=== PATIENT | female | born 1940 | race Caucasian/White ===

== ENCOUNTER 2016-11-14 23:50 | Inpatient (IN) | payer OTHER ==
--- NOTE | ~2016-11-14 | DS ---
Discharge Summary [facility] [address] [place]. [address] NAME: CARIDAD GORDON : 40 STATUS : DIS IN PAT#: [id number] AGE: 76 ADM/REG DATE : 11/15/16 MR#: [id number] REPORT SERV DATE: 11/28/16 DICTATED BY: OWEN CHI DATE: 11/27/16 REPORT STATUS : Draft TRANSCRIBED BY: ESME DATE: 11/27/16 Data Collection from hospitalization DISCHARGE DIAGNOSES: 1. Left lower lobe pneumonia. 2. End-stage chronic obstructive pulmonary disease. 3. Hypertension. 4. Former smoker. 5. Hypothyroidism. 6. Hyperlipidemia. 7. Depression and anxiety. 8. History of thoracic aortic aneurysm. CONSULTATION: Dr. Dipika Mcgowan. PROCEDURES PERFORMED: None. MEDICATIONS: Tylenol 325 mg every four hours as needed, DuoNeb one nebulized inhaler four times a day, Halfprin 81 mg at bedtime, Lipitor 10 mg at bedtime, Lasix 40 mg daily, Levaquin 750 mg daily, Synthroid 125 mcg daily, Mag-Ox 400 mg daily, Dulera two puffs via inhaler twice a day, Paxil 20 mg at bedtime, Klor-Con 20 mEq daily, Deltasone 40 mg daily. Daliresp 500 mcg daily, Spiriva one capsule via inhaler daily. CONDITION AT DISCHARGE: Stable. DISPOSITION: The patient was discharged to home on a regular diet with activities as instructed. To follow up with me 10 days following discharge. HOSPITAL COURSE: This is a 76-year-old female who is a former smoker. She has a history of COPD, chronic hypoxia, and recurrent CO2 narcosis. She presented with acute hypercapnic and hypoxemic respiratory failure requiring BiPAP and increased supplemental oxygen. When she arrived in the emergency room she was unresponsive with an elevated CO2. She has a long history of COPD with CO2 retention. She was placed on BiPAP in the emergency room and given aerosol for her O2 saturation increase. She was admitted to the hospital at this time for further evaluation and treatment. Upon admission, she was seen by Dr. Dipika Mcgowan regarding hypercapnic/hypoxemic respiratory failure requiring BiPAP. She had received bronchodilators and systemic steroids and cefepime as well as BiPAP with a good response. She currently felt significantly better, although she does have a persistent cough. She felt like her current pulmonary status was close to baseline. Her assessment included chronic obstructive pulmonary disease and chronic hypoxia with acute on chronic respiratory failure with hypercapnia likely secondary to infection. She did have CO2 narcosis and has had that in the past. She had a good response to her current treatment with systemic steroids and bronchodilators as well as cefepime, BiPAP, and supplemental oxygen. She recommended adding any nebulized steroid. Budesonide was going to begun via nebulization. It was recommended that she improves pulmonary toilet. She has a chronic infiltrative process in the right middle and right lower lobes. Procalcitonin would be checked. She had a good response to the cefepime. Discharge Summary [id number] [place]. [address] NAME: CARIDAD GORDON : 40 STATUS : DIS IN [facility]#: [id number] AGE: 76 ADM/REG DATE : 11/15/16 MR#: [id number] REPORT SERV DATE: 11/28/16 DICTATED BY: OWEN CHI DATE: 11/27/16 REPORT STATUS : Draft TRANSCRIBED BY: ESME DATE: 11/27/16 This was continued. In light of the significant CO2 narcosis, it was recommended that we continue BiPAP with supplemental oxygen. We would set the BiPAP at 20/5 as she did have a good response. This should be used with sleep. She was currently refusing outpatient pulmonary follow up after discharge. She said she would contact the office if she desired an appointment. On the 11/16/2016, she said she was feeling better. She did use her home CPAP the previous evening. Prednisone was adjusted. Solu-Medrol was stopped. She continued to refuse outpatient pulmonary followup after discharge. She was going to be changed to oral steroids and antibiotics. She was feeling better, but said not quite at her baseline. The next day, she was conversant. Chest x-ray did show left lower lobe atelectasis/infiltrate. Overall, she continued to improve. Discharge planning was performed. On 11/18/2016, she was wanting to go home. She was felt to have left lower lobe pneumonia and end-stage COPD. She is on BiPAP and O2 at home. Discharge instructions were given. Due to her improved and stable condition, she was discharged to home with the above- stated instructions. Information collected by: Rosemary Bravo I submit the above information as my discharge summary. ANGELIQUE/ESME Owen Chi M.D. / [id number] CC: Owen Chi M.D.
--- NOTE | ~2016-11-14 | CN ---
Consultation Report [id number] [facility] [place]. [address] NAME: CARIDAD WARNER : 40 STATUS : ADM IN [facility]#: [id number] AGE: 76 ADM/REG DATE : 11/15/16 MR#: [id number] REPORT SERV DATE: 11/15/16 DICTATED BY: DIPIKA VALENCIA DATE: 11/15/16 REPORT STATUS : Draft TRANSCRIBED BY: MODL DATE: 11/15/16 PULMONARY CONSULTATION DATE OF CONSULTATION: 11/15/2016 REASON FOR CONSULTATION: Hypercapnic/hypoxemic respiratory failure, requiring BiPAP. HISTORY OF PRESENT ILLNESS: Ms Warner is a 76-year-old white female, former smoker, with COPD, chronic hypoxia, and recurrent CO2 narcosis, who was admitted with acute hypercapnic and hypoxemic respiratory failure, requiring BiPAP and increased supplemental oxygen, so Pulmonary was consulted for assistance. The patient states that prior to admission, she had one-week history of cough productive of yellow sputum and worsening shortness of breath, despite compliance with her outpatient pulmonary medications and outpatient positive pressure device. She states that her symptoms continued to progress until she lost consciousness. She is unable to give further details. Per the admission note, the patient arrived at the emergency room unresponsive. The patient has received bronchodilators, systemic steroids, and cefepime as well as BiPAP with a good response. Currently, she states she feels significantly better though she does have a persistent cough. She does feel her current pulmonary status is close to her baseline. She was recently hospitalized for a femoral head fracture and was discharged from this hospital approximately six weeks ago. PAST MEDICAL HISTORY: 1. COPD/chronic respiratory failure, requiring positive airway pressure device. 2. Chronic hypoxia-on supplemental oxygen at a flow rate of 2 to 4 L/minutes 24 hours per day. 3. Former smoker. 4. Hypothyroidism. 5. Hypertension. 6. Hyperlipidemia. 7. Depression/anxiety. 8. Previous appendectomy. 9. Hysterectomy. 10.Thoracic aortic aneurysm. FAMILY HISTORY: She denies a family history of pulmonary diseases. SOCIAL HISTORY: Ms Warner smoked one half to one pack of cigarettes per day for 52 years and quit in 02/2015. She denies past/present drug use, chewing tobacco, occupational exposures, or ethanol intake. She is a and has three children. Consultation Report [facility] [address] [place]. [address] NAME: CARIDAD WARNER : 40 STATUS : ADM IN PAT#: [id number] AGE: 76 ADM/REG DATE : 11/15/16 MR#: [id number] REPORT SERV DATE: 11/15/16 DICTATED BY: DIPIKA VALENCIA DATE: 11/15/16 REPORT STATUS : Draft TRANSCRIBED BY: MODL DATE: 11/15/16 MEDICATIONS: Outpatient and inpatient medications were reviewed and are as documented in the chart. As noted, she reports compliance with her outpatient medications. ALLERGIES: SOMA, OXYCODONE HYDROCODONE. REVIEW OF SYSTEMS: A 10-point system review was conducted and is remarkable for the symptoms as described in the history of present illness. She denies any current pain. PHYSICAL EXAMINATION: VITAL SIGNS: Temperature 98.4 degrees, heart rate 102, blood pressure 124/65, respiratory rate 16, oxygen saturation 92% on supplemental oxygen at a flow rate of 2.5 L/minute. GENERAL: Elderly white female. Alert, oriented, and in no apparent distress. Speaking in full sentences without problems. HEENT: Normocephalic. Atraumatic. There is no scleral icterus. The conjunctivae are clear. NECK: Supple. LUNGS: There are few coarse rhonchi throughout. There are diminished breath sounds throughout. There are no crackles. There are faint expiratory wheezes in the posterior lung george. HEART: Regular tachycardia. No ectopy is noted. ABDOMEN: Soft. Nontender. Nondistended. There are normal bowel sounds in all four quadrants. BILATERAL EXTREMITIES: No clubbing, cyanosis, or edema is noted. NEUROLOGICAL: Limited exam and is nonfocal. SKIN: No rashes are noted. LABORATORY RESULTS: Labs were reviewed and are as documented in the record. Notable labs include a white blood cell count of 6.0. The BNP is 37.0. Arterial blood gas on BiPAP 18/5 with supplemental oxygen at 35% revealed a pH of 7.31, pCO2 of 102, and pO2 of 66. Arterial blood gas #2 on BiPAP of 20/5 with supplemental oxygen at 40% revealed a pH of 7.38, pCO2 of 88, and pO2 of 99. IMAGING: The chest x-ray done this admission revealed a right middle lobe and right lower lobe infiltrate that is unchanged compared to the chest x-ray done at last admission 09/10/2016. ASSESSMENT AND PLAN: 1. Ms Warner is a 76-year-old white female with former smoker with chronic obstructive pulmonary disease, chronic hypoxia, and acute on chronic respiratory failure with hypercapnia likely secondary to infection. She did have CO2 narcosis as noted above and has had this in the past. She has had a good response to current treatment with Consultation Report [address] [place] [address] NAME: CARIDAD WARNER : 40 STATUS : ADM IN PAT#: [id number] AGE: 76 ADM/REG DATE : 11/15/16 MR#: [id number] REPORT SERV DATE: 11/15/16 DICTATED BY: DIPIKA VALENCIA DATE: 11/15/16 REPORT STATUS : Draft TRANSCRIBED BY: ESME DATE: 11/15/16 systemic steroids and bronchodilators as well as cefepime, BiPAP, and supplemental oxygen. 2. Recommend adding a nebulized steroid. Budesonide 0.5 mg via nebulization twice daily will be added to her regimen. 3. Recommend improving pulmonary toilet. 4. There is a chronic infiltrative process in the right middle and right lower lobes. We would recheck the chest x-ray. Recommend checking a procalcitonin. She has had a good response to cefepime, so I recommend continuing this medication. 5. In light of her significant CO2 narcosis, I recommend continuing BiPAP with supplemental oxygen. We will set the BiPAP at 20/5 as she did have a good response. This should be used with sleep. 6. Ms Warner has been followed in our Pulmonary Clinic, but currently is refusing outpatient pulmonary follow up after discharge. She states she has all the contact information and will contact our office if she desires an appointment. Thank you very much for this consultation. DESHAWN/ESME Dipika Valencia M.D. / [id number] CC: He Brush M.D.
[2016-11-14 23:05] LABS: BASOPHILS 0.5 %; BASOPHILS ABSOLUTE 0.03 10/3/uL (0.0-0.16); EOSINOPHILS 3.2 %; EOSINOPHILS ABSOLUTE 0.19 10/3/uL (0.0-0.53); IMMATURE GRANULOCYTES 0.2 %; IMMATURE GRANULOCYTES ABSOLUTE 0.01 10/3/uL (0.0-0.11); LYMPHOCYTES 23.7 %; LYMPHOCYTES ABSOLUTE 1.42 10/3/uL (0.67-4.30); MEAN CORPUS HGB CONC 30.1 g/dL (32.0-36.0); MEAN CORPUSCULAR HEMOGLOB 30.5 pg (26.0-34.0); MEAN CORPUSCULAR VOLUME 101.3 fL (80-100); MEAN PLATELET VOLUME 10.3 fL (9.2-13.0); MONOCYTES 9.7 %; MONOCYTES ABSOLUTE 0.58 10/3/uL (0.21-1.20); NEUTROPHILS 62.7 %; NEUTROPHILS ABSOLUTE 3.77 10/3/uL (2.02-8.40); RBC DISTRIBUTION WIDTH 13.3 % (12.0-16.0)
[2016-11-14 23:09] LABS: HEMATOCRIT 38.9 % (36.0-48.0); HEMOGLOBIN 11.7 g/dL (12.0-16.0); MANUAL DIFF NO %; PLATELET COUNT 162 10/3/uL (150-400); RED CELL COUNT 3.84 10/6/uL (4.0-5.6)
[2016-11-14 23:22] LABS: BUN (BLOOD UREA NITROGEN) 11 MG/DL (6-23); CALCIUM, SERUM 8.9 MG/DL (8.5-10.4); CHLORIDE, SERUM 84 MMOL/L (96-112); GFR AFRICAN AMERICAN 103 ML/MIN (>=60); GFR NON AFRICAN AMERICAN 89 ML/MIN (>=60); POTASSIUM, SERUM 4.4 MMOL/L (3.5-5.3); SGOT(AST) 18 U/L (5-40); SGPT(ALT) 18 U/L (5-65); SODIUM, SERUM 136 MMOL/L (135-148); TOTAL PROTEIN 7.6 G/DL (6.0-8.5)
[2016-11-14 23:28] LABS: A/G RATIO 0.7 (0.7-1.9); ALBUMIN 3.2 G/DL (3.5-5.0); ALKALINE PHOSPHATASE 75 U/L (45-117); CO2 (CARBON DIOXIDE) > 45 MMOL/L (24-34); GLOBULIN 4.4 G/DL (2.5-4.1); GLUCOSE, SERUM 122 MG/DL (60-99); TOTAL BILIRUBIN 0.2 MG/DL (0-1.2)
[~2016-11-14 23:50] MED LIST: ADVAIR250 INH; ASAB PO; CEFT5 PO; CENTRUM PO; CORAL CALCIUM PO; DEMA20 PO; DULERA 200 MCG/13 GM INH; DUONEB INH; HALF81 PO; KLOR-CON M2020 MEQ; KLOR-CON M2020 MEQ PO; L40 PO; LEVOTHYROXIN125 MCG PO; LIPITOR PO; LIPITOR10 PO; MAGNESIUM OTC PO; MAGOX4 PO; MAX25 PO; NEBULIZER SOLN INH; P10 PO; P125 PO; P20 PO; PAX10; PAX10 PO; PAX20 PO; POTASSIUM RX PO; PREM625 PO; PROVENTSOL INH; SPIRIVA INH; SPIRIVA RESPIMAT INH; SYMBICORT 160/41 INH INH; SYN125 PO; SYNTHROID PO; [UNRECOGNIZED DRUG - OTHER] PO; [UNRECOGNIZED DRUG - OTHER] PO; [UNRECOGNIZED DRUG - REMARK] PO
[2016-11-15 00:20] LABS: ALLENS TEST Pos; BE (BASE EXCESS) 23.7 MEQ/L (0 +/- 2.5); CARBOXYHEMOGLOBIN 1.5 % (0-3); DEVICE NC; HCO3 (ACTUAL BICARBONATE) 57.6 MEQ/L (23-27); INSTRUMENT SERIAL # 8087; METHEMOGLOBIN 0.4 % (0-3); O2 CONTENT 16.6 VOL% (18-24); OPERATOR ID 334499; PCO2 (CO2 TENSION) 142 MMHG (35-45); PO2 (O2 TENSION) 146 MMHG (79-93); SAMPLE Arterial; pH 7.23 (7.37-7.43)
[2016-11-15 01:23] LABS: LACTATE 0.9 MMOL/L (0.3-2.4)
[2016-11-15 03:01] LABS: ALLENS TEST Pos; BE (BASE EXCESS) 19.1 MEQ/L (0 +/- 2.5); BIPAP 18/5 cm.H2O; CARBOXYHEMOGLOBIN 1.5 % (0-3); HCO3 (ACTUAL BICARBONATE) 49.9 MEQ/L (23-27); HEMOBLOGIN CONTENT 11.7 G/DL (12-16); INSTRUMENT SERIAL # 8087; METHEMOGLOBIN 0.3 % (0-3); OPERATOR ID 334499; PCO2 (CO2 TENSION) 102 MMHG (35-45); PO2 (O2 TENSION) 66 MMHG (79-93); SAMPLE Arterial; pH 7.31 (7.37-7.43)
[2016-11-15 06:31] LABS: BE (BASE EXCESS) 20.8 MEQ/L (0 +/- 2.5); CARBOXYHEMOGLOBIN 1.5 % (0-3); HCO3 (ACTUAL BICARBONATE) 50.4 MEQ/L (23-27); HEMOBLOGIN CONTENT 11.9 G/DL (12-16); INSTRUMENT SERIAL # 8087; METHEMOGLOBIN 0.2 % (0-3); O2 CONTENT 16.3 VOL% (18-24); PCO2 (CO2 TENSION) 88 MMHG (35-45); PO2 (O2 TENSION) 99 MMHG (79-93); pH 7.38 (7.37-7.43)
[2016-11-15 06:32] LABS: ALLENS TEST Pos; BIPAP 20/5 cm.H2O; OPERATOR ID 334499; SAMPLE Arterial
[2016-11-16 08:47] LABS: BASOPHILS 0 %; EOSINOPHILS 0 %; HEMOGLOBIN 11.3 g/dL (12.0-16.0); IMMATURE GRANULOCYTES 0.3 %; IMMATURE GRANULOCYTES ABSOLUTE 0.02 10/3/uL (0.0-0.11); LYMPHOCYTES 11.7 %; LYMPHOCYTES ABSOLUTE 0.85 10/3/uL (0.67-4.30); MEAN CORPUSCULAR HEMOGLOB 30.6 pg (26.0-34.0); MONOCYTES ABSOLUTE 0.29 10/3/uL (0.21-1.20); NEUTROPHILS ABSOLUTE 6.12 10/3/uL (2.02-8.40); PLATELET COUNT 170 10/3/uL (150-400); RBC DISTRIBUTION WIDTH 13.5 % (12.0-16.0); RED CELL COUNT 3.69 10/6/uL (4.0-5.6); WHITE BLOOD CELLS 7.3 10/3/uL (4.5-10.5)
[2016-11-16 08:49] LABS: HEMATOCRIT 34.8 % (36.0-48.0); MANUAL DIFF NO %; MEAN CORPUS HGB CONC 32.5 g/dL (32.0-36.0); MEAN CORPUSCULAR VOLUME 94.3 fL (80-100)
[2016-11-16 09:33] LABS: A/G RATIO 0.8 (0.7-1.9); ALBUMIN 3.3 G/DL (3.5-5.0); ALKALINE PHOSPHATASE 66 U/L (45-117); CALCIUM, SERUM 9.3 MG/DL (8.5-10.4); CHLORIDE, SERUM 91 MMOL/L (96-112); CREATININE 0.72 MG/DL (0.55-1.02); GFR AFRICAN AMERICAN 94 ML/MIN (>=60); GFR NON AFRICAN AMERICAN 81 ML/MIN (>=60); GLOBULIN 4.4 G/DL (2.5-4.1); GLUCOSE, SERUM 111 MG/DL (60-99); SGOT(AST) 16 U/L (5-40); SGPT(ALT) 15 U/L (5-65); SODIUM, SERUM 137 MMOL/L (135-148); TOTAL BILIRUBIN 0.3 MG/DL (0-1.2); TOTAL PROTEIN 7.7 G/DL (6.0-8.5)
[2016-11-16 09:36] LABS: BUN (BLOOD UREA NITROGEN) 21 MG/DL (6-23); CO2 (CARBON DIOXIDE) 40 MMOL/L (24-34)
[2016-11-16 10:32] LABS: PROCALCITONIN 0.08 ng/mL (<0.5)
[2016-11-18 06:55] LABS: BASOPHILS 0 %; EOSINOPHILS 0.1 %; EOSINOPHILS ABSOLUTE 0.01 10/3/uL (0.0-0.53); HEMATOCRIT 37.7 % (36.0-48.0); IMMATURE GRANULOCYTES 0.3 %; IMMATURE GRANULOCYTES ABSOLUTE 0.03 10/3/uL (0.0-0.11); LYMPHOCYTES 19.3 %; LYMPHOCYTES ABSOLUTE 2.21 10/3/uL (0.67-4.30); MEAN CORPUS HGB CONC 31.8 g/dL (32.0-36.0); MEAN CORPUSCULAR HEMOGLOB 30.5 pg (26.0-34.0); MEAN CORPUSCULAR VOLUME 95.9 fL (80-100); MEAN PLATELET VOLUME 10.3 fL (9.2-13.0); MONOCYTES 13.8 %; MONOCYTES ABSOLUTE 1.58 10/3/uL (0.21-1.20); NEUTROPHILS 66.5 %; NEUTROPHILS ABSOLUTE 7.64 10/3/uL (2.02-8.40); PLATELET COUNT 187 10/3/uL (150-400); RBC DISTRIBUTION WIDTH 13.9 % (12.0-16.0); RED CELL COUNT 3.93 10/6/uL (4.0-5.6)
[2016-11-18 07:03] LABS: MANUAL DIFF NO %; WHITE BLOOD CELLS 11.5 10/3/uL (4.5-10.5)
[2016-11-18 07:05] LABS: BUN (BLOOD UREA NITROGEN) 19 MG/DL (6-23); CHLORIDE, SERUM 93 MMOL/L (96-112); CREATININE 0.69 MG/DL (0.55-1.02); GFR AFRICAN AMERICAN 98 ML/MIN (>=60); GFR NON AFRICAN AMERICAN 85 ML/MIN (>=60); POTASSIUM, SERUM 4.2 MMOL/L (3.5-5.3); SODIUM, SERUM 137 MMOL/L (135-148)
[2016-11-18 07:06] LABS: CO2 (CARBON DIOXIDE) 41 MMOL/L (24-34); GLUCOSE, SERUM 85 MG/DL (60-99)
[2016-11-18] MEDS ORDERED: LEVAQUIN750 MG PO (13:03)
[2016-11-18] MEDS ORDERED: P20 PO (13:04)
[2016-11-18] MEDS ORDERED: DALIRESP500 MCG PO (13:04)
[2016-11-18] MEDS ORDERED: T PO (13:07)
[2017-02-28] MEDS ORDERED: P10 PO (15:18)
[2017-05-16] MEDS ORDERED: PROAIR HFA INH (15:36)
[2017-05-16] MEDS ORDERED: LIPITOR10 PO (16:18)
[2017-05-25] MEDS ORDERED: BROVANA15 MCG INH (08:16)
[2017-05-25] MEDS ORDERED: T300 PO (08:16)
[2017-05-25] MEDS ORDERED: P20 PO (08:17)
[2017-05-25] MEDS ORDERED: PULRESP.5 INH (08:17)
[2017-05-25] MEDS ORDERED: HUMI PO (08:21)
== END 2016-11-18 15:21 | disposition home or self-care (01) | DRG 189 ==
LOC: ER 23:50 → ER/OF 11-15 01:05 → 1SO 11-15 09:47
PROVIDERS: Emergency Medicine; Internal Medicine; Specialist
PROC: 5A09357 Assistance with Respiratory Ventilation, Less than 24 Consecutive Hours, Continuous Positive Airway Pressure (ICD-10-PCS; principal; 2016-11-15)
DX: J96.21 Acute and chronic respiratory failure with hypoxia (principal); J18.9 Pneumonia, unspecified organism; J44.0 Chronic obstructive pulmonary disease with (acute) lower respiratory infection; I71.2 Thoracic aortic aneurysm, without rupture; J44.9 Chronic obstructive pulmonary disease, unspecified; Z99.81 Dependence on supplemental oxygen; J96.22 Acute and chronic respiratory failure with hypercapnia; Z66 Do not resuscitate; E78.5 Hyperlipidemia, unspecified; I10 Essential (primary) hypertension; E03.9 Hypothyroidism, unspecified; F41.8 Other specified anxiety disorders; Z91.018 Allergy to other foods; Z79.899 Other long term (current) drug therapy; Z79.82 Long term (current) use of aspirin; Z88.5 Allergy status to narcotic agent; Z91.013 Allergy to seafood; Z88.8 Allergy status to other drugs, medicaments and biological substances; Z87.891 Personal history of nicotine dependence
CPT/HCPCS: 36600; 71010; 71020; 80048; 80053; 82805; 83605; 83880; 84145; 84484; 85025; 87040; 93005; 94640; 94660; 99291; A9270-GY; J0692; J2920; J2930

== ENCOUNTER 2016-12-13 23:33 | Inpatient (IN) | payer OTHER ==
--- NOTE | ~2016-12-13 | DS ---
Discharge Summary [address] [facility] [place]. [address] NAME: CARIDAD GORDON : 40 STATUS : DIS IN PAT#: [id number] AGE: 76 ADM/REG DATE : 12/14/16 MR#: [id number] REPORT SERV DATE: 12/22/16 DICTATED BY: SAUL ELIZABETH DATE: 12/21/16 REPORT STATUS : Draft TRANSCRIBED BY: ESME DATE: 12/21/16 ADMISSION DATE: 12/14/2016 DISCHARGE DATE: 12/21/2016 DIAGNOSES: 1. Acute left lower extremity hematoma, status post trauma. 2. Left lower extremity cellulitis, acute. 3. Acute blood loss anemia. 4. Chronic obstructive pulmonary disease. 5. History of hypothyroidism. CONSULTANTS: 1. Dr. Sinan Gaitan, General Surgery and mortgage loan specialist. 2. Dr. Sanchez, Orthopedic Surgery. FOLLOWUP: The patient should follow up with Dr. Sinan Gaitan in [facility] Care [facility] in one week and to follow up with primary care physician in one to two weeks after rehab. DISCHARGE MEDICATIONS: 1. Lipitor 10 mg p.o. at bedtime. 2. Lasix 40 mg p.o. q.a.m. 3. Levothyroxine 125 mcg p.o. q.a.m. 4. Magnesium oxide 400 mg p.o. daily. 5. Paxil 20 mg p.o. at bedtime. 6. Potassium chloride 20 mEq p.o. daily. 7. Daliresp 500 mcg p.o. daily. 8. Spiriva one cap inhaled daily. 9. Silvadene topical cream to left calf area. 10.Dulera 200/5 mcg, two puffs inhaled b.i.d. 11.Tylenol 650 mg p.o. q.6 hours p.r.n. 12.Albuterol nebs four times a day and p.r.n. 13.Tramadol 50 mg p.o. q.4 hours p.r.n. 14.Florastor one cap p.o. b.i.d. 15.Clindamycin 300 mg p.o. t.i.d. for five days. HOSPITALIST: 1. Dr. Manpreet Salinas. 2. Dr. Philipp Newman. 3. Dr. Elizabeth. HOSPITAL COURSE: This is a 76 years old female with a past medical history of COPD and hypothyroidism, uses two to three liters of home oxygen at home, experienced a fall while at home hitting her leg on a piece of furniture. She did not have any loss of consciousness. Denied any head trauma. The patient attempted to treat herself while at home with ice wrap and later developed worsening, bruising and swelling, and increased pain. The patient presented to [facility] ER with severe left lower extremity cellulitis and signs of hematoma Discharge Summary [address] [address] NAME: CARIDAD GORDON : 40 STATUS : DIS IN PAT#: [id number] AGE: 76 ADM/REG DATE : 12/14/16 MR#: [id number] REPORT SERV DATE: 12/22/16 DICTATED BY: SAUL ELIZABETH DATE: 12/21/16 REPORT STATUS : Draft TRANSCRIBED BY: ESME DATE: 12/21/16 of the left lower extremity, more in the calf area. The patient had a CT of the lower extremity that revealed a hematoma extending from the knee into the calf medially on the left side with extensive soft tissue swelling. There is no evidence of active extravasation. Also, the patient had an x-ray that showed intact osseous structures. No fracture or dislocation of the left tibia or fibula. The patient was admitted to the Hospitalist Service and admitted by Dr. Manpreet Salinas and admitted to Dr. Newman. She was empirically placed on IV antibiotics with vancomycin and Ancef. Also, orthopedic surgeon, Dr. Sanchez was consulted for possible need of surgical intervention for the patient's hematoma, however, with evaluation by Orthopedic Surgery, he recommended no surgical intervention at this time. The patient did require some IV Lasix for profuse edema of the extremity which improved with treatment. Also, the patient required 2 units of packed red blood cells for acute blood loss anemia which stabilized. Dr. Sanchez recommended appropriate wound care and also consulted Wound Care nurse as well as compression wrappings of the left lower extremity, and he also consulted Dr. Sinan Gaitan, General Surgery/mortgage loan specialist for the left lower extremity wound care with findings of some skin necrosis around the calf area. The patient was evaluated for several days by Dr. Gaitan, who recommends at this time no surgical intervention for the necrotic skin around the calf area, but to continue with current management with wound care as well as compression dressing, and the patient is okay for discharge to rehab to follow up in one week with himself in the Wound Care Clinic. Also, the patient was approved for discharge by Dr. Sanchez with followup with Dr. Gaitan. Please refer to interim summary from Dr. Newman for further details. The patient's cellulitis improved with treatment but still with the some localized cellulitis around the calf area, around necrotic skin areas. It was explained to the patient and her son, Justin, the possibility of a possible surgery of necrotic skin in the future depending on the patient's evaluation by Dr. Gaitan as an outpatient; however, he does not recommend any surgical intervention at this time. The patient was discharged to [facility]. Wound care orders were given by Dr. Gaitan as well as Dr. Sanchez for continued care as well while at [facility]. The patient was approved for discharge. This discharge required greater than 30 minutes. KRISTEN/MODL Saul Elizabeth M.D. / [id number] CC: Jose Daniel Burgos M.D. John Nash, M.D. John Gwin Jr., M.D.
--- NOTE | ~2016-12-13 | IDS ---
Interim Discharge Summary [facility] [address] [place]. [address] NAME: CARIDAD GORDON : 40 STATUS : ADM IN [facility]#: [id number] AGE: 76 ADM/REG DATE : 12/14/16 MR#: [id number] REPORT SERV DATE: 12/17/16 DICTATED BY: PHILIPP NEWMAN DATE: 12/17/16 REPORT STATUS : Draft TRANSCRIBED BY: MODL DATE: 12/17/16 ADMISSION DATE: 12/14/2016 DISCHARGE DATE: REASON FOR ADMISSION: Left lower extremity hematoma with resultant cellulitis. HISTORY OF PRESENT ILLNESS: Please refer to Dr. Salinas's history and physical dated 12/14/2016, regarding the patient's admission. In brief, the patient was admitted to hospital service management of her superimposed cellulitis by Dr. Sanchez who addressed the patient's hematoma. HOSPITAL COURSE: The patient had an uncomplicated hospital course. 1. Large left lower extremity hematoma. The patient was at home and sustained a fall on [facility], which generated a large hematoma. Dr. Sanchez was consulted to determine if the patient needed surgical release of the hematoma. He felt that it was not causing any compressive symptoms and recommended an Abdiel bandage. He has followed her for the past couple of days. CT scan of her lower extremity on the 12/14/2016, showed a hematoma extending from the knee into the calf medially, left side with extensive soft tissue swelling. The arterial and venous structures demonstrate no evidence of apparent active extravasation. 2. Left lower extremity cellulitis. The patient was placed on Ancef. She has significant erythema, which is secondary to her hematoma along with swelling. She has received about three to four days of IV Ancef. I had anticipated her erythema to have improved by now, so I am going to add vancomycin. She has remained afebrile throughout the hospitalization. I am going to also add IV Lasix to help with the edema. 3. Acute blood loss anemia. The patient had a significant blood loss, around 5 g drop. She was transfused two units of packed red blood cells. Her hemoglobin has been stable, less likely a concern for an active arterial bleed, but we will continue to monitor her hemoglobin daily. 4. Hypotension. She had multiple hypotensive episodes. This was initially thought to be due to her acute blood loss anemia. Cortisol level was obtained, which was unremarkable. After she got two units of packed red blood cells, her blood pressure had gotten better, but still had some hypotensive episodes. On 12/16/2016, she had received a bolus or two of IV fluids and now her hemoglobin has been back to her baseline. 5. End-stage COPD with chronic hypoxic and hypercapnic respiratory failure. Her baseline is 2-3 L nasal cannula. She has remained here without exacerbation and as a result, the patient requests to be a DNR/DNI. DISPOSITION: Physical Therapy had evaluated the patient and recommended rehab. Initially, the patient had declined, but she is more open to it now. The patient lives in a very small motor home and has to maneuver her space very tightly, and I am concerned with her falling. We will ask case management to evaluate for possible rehab placement. Final disposition per Dr. Barkley, who will assume care of this patient on 12/18/2016. INTERIM DIAGNOSES: Left lower extremity hematoma status post fall; left lower extremity Interim Discharge Summary [address] [address] NAME: CARIDAD GORDON : 40 STATUS : ADM IN [facility]#: [id number] AGE: 76 ADM/REG DATE : 12/14/16 MR#: [id number] REPORT SERV DATE: 12/17/16 DICTATED BY: PHILIPP NEWMAN DATE: 12/17/16 REPORT STATUS : Draft TRANSCRIBED BY: ESME DATE: 12/17/16 cellulitis; acute blood loss anemia, status post two units of packed red blood cells; end- stage chronic obstructive pulmonary disease; chronic hypoxic and hypercapnic respiratory failure; we-ijt-iakchwixrjo/hb-rgo-rgxjfovw; hypotension, now resolved. DAMION/ESME Philipp Newman MD / [id number] CC: MD He Carlisle M.D.
--- NOTE | ~2016-12-13 | HP ---
History And Physical [place] [id number] [facility] [place]. [address] NAME: CARIDAD WARNER : 40 STATUS : ADM IN [facility]#: [id number] AGE: 76 ADM/REG DATE : 12/14/16 MR#: [id number] REPORT SERV DATE: 12/14/16 DICTATED BY: STEFANY LOPEZ DATE: 12/14/16 REPORT STATUS : Draft TRANSCRIBED BY: MODRitu DATE: 12/14/16 DATE OF ADMISSION: 12/14/2016 POINT OF ENTRY: [facility] Emergency Department. CHIEF COMPLAINT: Fall with left leg pain. HISTORY OF PRESENT ILLNESS: Ms. 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 The patient states she was in her usual state of health until Saturday when she suffered a mechanical fall at home, striking her left leg against a piece of furniture. She denied any loss of consciousness, denied any head trauma. The pain was fairly well controlled except for when she needed to ambulate. She was keeping ice wraps on her leg for pain control. Today, she removed some of the ice wraps from her left leg and noticed profound swelling of the lower extremity with diffuse ecchymosis and bruising as well as some blistering along the medial aspect of her thigh containing what appears to be serosanguineous fluid. This finding is what prompted her to present to the emergency department. Initial evaluation in the emergency department was notable for stable vital signs, plain films of the left lower leg were negative for any evidence of fracture. Her CBC is noted for a drop in her H and H to 8.3 and 27.8 from 12.0 and 37.7, a few weeks earlier. She was placed on IV antibiotics for concern for superimposed cellulitis, admitted to the Hospitalist Service as it was felt that she would need surgical intervention and drainage of a very large hematoma of her left lower extremity. REVIEW OF SYSTEMS: Comprehensive system otherwise negative unless listed in history of present illness. Specifically, she denies any fevers, night sweats, chills, chest pain, any change in her baseline shortness of breath, abdominal pain, nausea, vomiting, diarrhea, or constipation. PREVIOUS MEDICAL HISTORY: 1. Now end-stage COPD on 2 to 3 L nasal cannula. 2. Chronic hypercarbic and hypoxic respiratory failure on nocturnal BiPAP. 3. Hypertension. 4. Hyperlipidemia. 5. Hypothyroidism. 6. Depression. 7. Anxiety. 8. History of thoracic aortic aneurysm. SURGICAL HISTORY: Left hemiarthroplasty. ALLERGIES: History And Physical [address] [place]. [address] NAME: CARIDAD WARNER : 40 STATUS : ADM IN PAT#: [id number] AGE: 76 ADM/REG DATE : 12/14/16 MR#: [id number] REPORT SERV DATE: 12/14/16 DICTATED BY: STEFANY LOPEZ DATE: 12/14/16 REPORT STATUS : Draft TRANSCRIBED BY: ESME DATE: 12/14/16 1. DILAUDID. 2. FISH CONTAINING PRODUCTS. 3. HYDROCODONE. 4. OXYCODONE. 5. SOMA. 6. PINEAPPLE. HOME MEDICATIONS: 1. Tylenol 325 mg q.4 hours p.r.n. 2. DuoNeb one nebulization q.i.d. 3. Aspirin 81 mg at bedtime. 4. Lipitor 10 mg at bedtime. 5. Lasix 40 mg daily. 6. Levothyroxine 125 mcg daily. 7. Magnesium oxide 400 mg daily. 8. Dulera two puff inhalation b.i.d. 9. Paxil 20 mg at bedtime. 10.Potassium chloride 20 mEq daily. 11.Daliresp 500 mcg daily. 12.Spiriva one cap inhalation daily. SOCIAL HISTORY: She is a former smoker, quit about a year and half ago. Denies any alcohol. Denies illicits. Currently lives alone. FAMILY MEDICAL HISTORY: Mother with coronary artery disease and stroke. Father with history of congestive heart failure. Siblings with coronary artery disease. LABS AND IMAGIN. White count is 5.2, hemoglobin is 8.3, hematocrit is 27.8, platelets 207, INR 1.0. 2. Sodium is 136, potassium 4.7, chloride 87, carbon dioxide greater than 45, BUN 11, creatinine 0.64, glucose is 103, calcium is 8.3, magnesium is 2.4. 3. Chest x-ray per my review shows no acute cardiopulmonary abnormality. 4. Troponin less than 0.02. 5. Lactic acid is 1.0. 6. EKG per my review shows normal sinus rhythm. No evidence of any acute ischemia or infarction. PHYSICAL EXAMINATION: VITAL SIGNS: Temperature is 98.4 degrees Fahrenheit, pulse is 86, respirations 20, saturating 98% on 2 L by nasal cannula, blood pressure 111/42, on recheck, blood pressure now 112/52, pulse is 95. GENERAL: The patient is awake, alert, in no acute distress. Resting comfortably in bed. She is a chronically ill-appearing, elderly female. HEENT: Atraumatic and normocephalic. Moist mucous membranes. Pupils equal, round, reactive to light and accommodation. Extraocular eye movements intact. No scleral icterus. NECK: No jugular venous distention. No carotid bruits. CARDIAC: Regular rate and rhythm. No murmurs or gallops. Normal S1, S2. History And Physical [address] [address] NAME: CARIDAD WARNER : 40 STATUS : ADM IN [facility]#: [id number] AGE: 76 ADM/REG DATE : 12/14/16 MR#: [id number] REPORT SERV DATE: 12/14/16 DICTATED BY: STEFANY LOPEZ DATE: 12/14/16 REPORT STATUS : Draft TRANSCRIBED BY: ESME DATE: 12/14/16 LUNGS: On oxygen, but no respiratory distress. Does have decreased breath sounds at bases as well as prolonged respiratory phase. I do not appreciate any diffuse wheezes, rhonchi, or crackles. ABDOMEN: Soft, nontender, nondistended. No bowel sounds. EXTREMITIES: Left lower extremity has diffuse edema as well as erythema and ecchymosis as well as a fairly well-demarcated large hematoma on the medial aspect of her posterior left calf. Also evidence of some blistering with serosanguineous fluid. Left lower extremity pulses are dopplerable and she is able to move her distal left lower extremity. SKIN: Warm and dry except for noted above. PSYCH: Affect appropriate. NEURO: Alert and oriented x3. Cranial nerves 2 through 12 grossly intact. Speech is normal. Gait not assessed. ASSESSMENT AND PLAN: Ms. Warner is a 76-year-old female, status post mechanical fall with resulting a large left lower extremity hematoma as well as concern for superimposed cellulitis. PROBLEM LIST: 1. Left lower extremity hematoma. 2. Concern for superimposed cellulitis. 3. Severe COPD. 4. Chronic hypercarbic and hypoxic respiratory failure. 5. Acute blood loss anemia. PLAN: 1. Large left lower extremity hematoma. We will admit the patient to hospitalist service. Consult Orthopedic Surgery for likely needing a surgical drainage of the hematoma. Given extensive edema, ecchymosis, and hematoma of the left lower extremity, we will check a CT scan of the lower extremity to better visualize to see if there are any fractures or breaks. 2. Superimposed cellulitis. There is some surrounding erythema and warmth to the left lower extremity. We will continue the patient on IV antibiotics for superimposed cellulitis, blood cultures have been obtained. 3. Severe chronic obstructive pulmonary disease. No evidence of acute exacerbation at this time. Continue the patient's home medications as well as her home BiPAP, DuoNeb p.r.n. 4. Chronic hypoxic and hypercarbic respiratory failure. The patient's CO2 under BMP is greater than 45. We will place her on some Diamox in addition to her home medications and at bedtime BiPAP. 5. Acute blood loss anemia. The patient's hemoglobin is 8.3, in October it was 12.0, likely due to some blood lost into her left lower extremity. We will trend out her hemoglobin and hematocrit over the next 24 hours and transfusing less than 7. 6. Deep vein thrombosis prophylaxis. TEDs and SCDs given concern for large hematoma. CODE STATUS: The patient wishes to be DNR. History And Physical [address] [address] NAME: CARIDAD WARNER : 40 STATUS : ADM IN [facility]#: [id number] AGE: 76 ADM/REG DATE : 12/14/16 MR#: [id number] REPORT SERV DATE: 12/14/16 DICTATED BY: STEFANY LOPEZ DATE: 12/14/16 REPORT STATUS : Draft TRANSCRIBED BY: ESME DATE: 12/14/16 SELIN/ESME Stefany Lopez MD / [id number] CC: Jose Daniel Preston M.D.
--- NOTE | ~2016-12-13 | DS ---
Discharge Summary [place] [address] [place]. [address] NAME: CARIDAD GORDON : 40 STATUS : DIS IN PAT#: [id number] AGE: 76 ADM/REG DATE : 12/14/16 MR#: [id number] REPORT SERV DATE: 12/22/16 DICTATED BY: SAUL ELIZABETH DATE: 12/21/16 REPORT STATUS : Draft TRANSCRIBED BY: ESME DATE: 12/21/16 ADMISSION DATE: 12/14/2016 DISCHARGE DATE: 12/21/2016 ADDENDUM: Also please note, the patient did receive a tetanus vaccine during her hospital stay. [facility]/ESME Saul Elizabeth M.D. / [id number] CC: Jose Daniel Burgos M.D. John Nash, M.D. John Gwin Jr., M.D.
[~2016-12-13 23:33] MED LIST changes: +DALIRESP500 MCG PO; +LEVAQUIN750 MG PO; +T PO
[2016-12-13 23:37] LABS: BASOPHILS 0.2 %; BASOPHILS ABSOLUTE 0.01 10/3/uL (0.0-0.16); EOSINOPHILS 3.3 %; EOSINOPHILS ABSOLUTE 0.17 10/3/uL (0.0-0.53); IMMATURE GRANULOCYTES 0.6 %; IMMATURE GRANULOCYTES ABSOLUTE 0.03 10/3/uL (0.0-0.11); LYMPHOCYTES 27.1 %; MEAN CORPUSCULAR HEMOGLOB 30.2 pg (26.0-34.0); MEAN PLATELET VOLUME 8.6 fL (9.2-13.0); MONOCYTES 14.9 %; MONOCYTES ABSOLUTE 0.77 10/3/uL (0.21-1.20); NEUTROPHILS 53.9 %; NEUTROPHILS ABSOLUTE 2.79 10/3/uL (2.02-8.40); PLATELET COUNT 207 10/3/uL (150-400); RBC DISTRIBUTION WIDTH 14.2 % (12.0-16.0)
[2016-12-13] MEDS ORDERED: HALF81 PO (23:37)
[2016-12-13] MEDS ORDERED: LIPITOR10 PO (23:37)
[2016-12-13] MEDS ORDERED: DUONEB INH (23:37)
[2016-12-13] MEDS ORDERED: T PO (23:37)
[2016-12-13] MEDS ORDERED: L40 PO (23:38)
[2016-12-13] MEDS ORDERED: SYN125 PO (23:38)
[2016-12-13] MEDS ORDERED: PAX20 PO (23:38)
[2016-12-13] MEDS ORDERED: KDUR20 PO (23:38)
[2016-12-13] MEDS ORDERED: DULERA 200 MCG/13 GM INH (23:38)
[2016-12-13] MEDS ORDERED: MAGOX4 PO (23:38)
[2016-12-13 23:39] LABS: ER CBC TAT 0 Hrs 05 Mins; HEMATOCRIT 27.8 % (36.0-48.0); HEMOGLOBIN 8.3 g/dL (12.0-16.0); MANUAL DIFF NO %; MEAN CORPUS HGB CONC 29.9 g/dL (32.0-36.0); MEAN CORPUSCULAR VOLUME 101.1 fL (80-100); RED CELL COUNT 2.75 10/6/uL (4.0-5.6); WHITE BLOOD CELLS 5.2 10/3/uL (4.5-10.5)
[2016-12-13] MEDS ORDERED: DALIRESP500 MCG PO (23:39)
[2016-12-13] MEDS ORDERED: SPIRIVA INH (23:39)
[2016-12-13 23:53] LABS: CALCIUM, SERUM 8.3 MG/DL (8.5-10.4); CHEST PAIN PROFILE TAT 0 Hrs 19 Mins; CHLORIDE, SERUM 87 MMOL/L (96-112); CREATININE 0.64 MG/DL (0.55-1.02); GFR AFRICAN AMERICAN 100 ML/MIN (>=60); GFR NON AFRICAN AMERICAN 87 ML/MIN (>=60); POTASSIUM, SERUM 4.7 MMOL/L (3.5-5.3); SODIUM, SERUM 136 MMOL/L (135-148); TROPONIN I <0.02 NG/ML (<0.05)
[2016-12-13 23:55] LABS: BUN (BLOOD UREA NITROGEN) 11 MG/DL (6-23); CO2 (CARBON DIOXIDE) > 45 MMOL/L (24-34); GLUCOSE, SERUM 103 MG/DL (60-99)
[2016-12-14 00:30] LABS: PARTIAL THROMBO TIME 31.6 SEC (22.5-37.2); PROTIME (NOT ORD) 12.9 SEC (12.0-14.5)
[2016-12-14 01:49] LABS: BE (BASE EXCESS) 22.1 MEQ/L (0 +/- 2.5); CARBOXYHEMOGLOBIN 1.9 % (0-3); HCO3 (ACTUAL BICARBONATE) 50.8 MEQ/L (23-27); INSTRUMENT SERIAL # 8087; METHEMOGLOBIN 0.3 % (0-3); O2 CONTENT 10.8 VOL% (18-24); OPERATOR ID 17589; PCO2 (CO2 TENSION) 96 MMHG (35-45); PO2 (O2 TENSION) 88 MMHG (79-93); SAMPLE Arterial; pH 7.34 (7.37-7.43)
[2016-12-14 01:50] LABS: ALLENS TEST Pos; DEVICE Nasal Cannula @ 2.5
[2016-12-14 07:10] LABS: BASOPHILS 0.4 %; BASOPHILS ABSOLUTE 0.02 10/3/uL (0.0-0.16); EOSINOPHILS 4.4 %; EOSINOPHILS ABSOLUTE 0.23 10/3/uL (0.0-0.53); HEMOGLOBIN 7.5 g/dL (12.0-16.0); IMMATURE GRANULOCYTES 0.4 %; IMMATURE GRANULOCYTES ABSOLUTE 0.02 10/3/uL (0.0-0.11); LYMPHOCYTES 29.3 %; LYMPHOCYTES ABSOLUTE 1.54 10/3/uL (0.67-4.30); MEAN CORPUS HGB CONC 30.4 g/dL (32.0-36.0); MEAN CORPUSCULAR HEMOGLOB 30.9 pg (26.0-34.0); MEAN CORPUSCULAR VOLUME 101.6 fL (80-100); MEAN PLATELET VOLUME 9.2 fL (9.2-13.0); MONOCYTES 16.9 %; MONOCYTES ABSOLUTE 0.89 10/3/uL (0.21-1.20); NEUTROPHILS 48.6 %; NEUTROPHILS ABSOLUTE 2.56 10/3/uL (2.02-8.40); PLATELET COUNT 216 10/3/uL (150-400); RBC DISTRIBUTION WIDTH 14.3 % (12.0-16.0); RED CELL COUNT 2.43 10/6/uL (4.0-5.6); WHITE BLOOD CELLS 5.3 10/3/uL (4.5-10.5)
[2016-12-14 07:11] LABS: HEMATOCRIT 24.7 % (36.0-48.0); MANUAL DIFF NO %
[2016-12-14 07:23] LABS: BUN (BLOOD UREA NITROGEN) 10 MG/DL (6-23); CALCIUM, SERUM 8.2 MG/DL (8.5-10.4); CHLORIDE, SERUM 90 MMOL/L (96-112); CREATININE 0.65 MG/DL (0.55-1.02); GFR AFRICAN AMERICAN 100 ML/MIN (>=60); GFR NON AFRICAN AMERICAN 86 ML/MIN (>=60); GLUCOSE, SERUM 84 MG/DL (60-99); POTASSIUM, SERUM 3.8 MMOL/L (3.5-5.3); SODIUM, SERUM 137 MMOL/L (135-148)
[2016-12-14 07:31] LABS: CO2 (CARBON DIOXIDE) > 45 MMOL/L (24-34)
[2016-12-14 11:05] LABS: HEMATOCRIT 25.9 % (36.0-48.0); HEMOGLOBIN 7.9 g/dL (12.0-16.0)
[2016-12-14 23:17] LABS: HEMATOCRIT 26.2 % (36.0-48.0); HEMOGLOBIN 7.7 g/dL (12.0-16.0)
[2016-12-15 07:04] LABS: BASOPHILS 0.2 %; BASOPHILS ABSOLUTE 0.01 10/3/uL (0.0-0.16); EOSINOPHILS 2.6 %; EOSINOPHILS ABSOLUTE 0.14 10/3/uL (0.0-0.53); HEMOGLOBIN 7.4 g/dL (12.0-16.0); IMMATURE GRANULOCYTES 0.6 %; IMMATURE GRANULOCYTES ABSOLUTE 0.03 10/3/uL (0.0-0.11); LYMPHOCYTES 21.4 %; LYMPHOCYTES ABSOLUTE 1.16 10/3/uL (0.67-4.30); MEAN CORPUS HGB CONC 30.8 g/dL (32.0-36.0); MEAN CORPUSCULAR HEMOGLOB 31.5 pg (26.0-34.0); MEAN CORPUSCULAR VOLUME 102.1 fL (80-100); MEAN PLATELET VOLUME 9.5 fL (9.2-13.0); MONOCYTES 15.3 %; MONOCYTES ABSOLUTE 0.83 10/3/uL (0.21-1.20); NEUTROPHILS 59.9 %; NEUTROPHILS ABSOLUTE 3.24 10/3/uL (2.02-8.40); PLATELET COUNT 235 10/3/uL (150-400); RBC DISTRIBUTION WIDTH 14.4 % (12.0-16.0); RED CELL COUNT 2.35 10/6/uL (4.0-5.6); WHITE BLOOD CELLS 5.4 10/3/uL (4.5-10.5)
[2016-12-15 07:06] LABS: MANUAL DIFF NO %
[2016-12-15 07:15] LABS: BUN (BLOOD UREA NITROGEN) 12 MG/DL (6-23); CALCIUM, SERUM 8.5 MG/DL (8.5-10.4); CHLORIDE, SERUM 98 MMOL/L (96-112); CO2 (CARBON DIOXIDE) 39 MMOL/L (24-34); GFR AFRICAN AMERICAN 83 ML/MIN (>=60); GFR NON AFRICAN AMERICAN 72 ML/MIN (>=60); GLUCOSE, SERUM 75 MG/DL (60-99); SODIUM, SERUM 139 MMOL/L (135-148)
[2016-12-15 11:06] LABS: HEMATOCRIT 23.3 % (36.0-48.0)
[2016-12-15 11:09] LABS: HEMOGLOBIN 6.9 g/dL (12.0-16.0)
[2016-12-15 22:22] LABS: HEMATOCRIT 30.7 % (36.0-48.0); HEMOGLOBIN 9.7 g/dL (12.0-16.0)
[2016-12-16 06:33] LABS: BASOPHILS 0.1 %; BASOPHILS ABSOLUTE 0.01 10/3/uL (0.0-0.16); EOSINOPHILS 1.9 %; EOSINOPHILS ABSOLUTE 0.13 10/3/uL (0.0-0.53); HEMATOCRIT 31.1 % (36.0-48.0); HEMOGLOBIN 10.1 g/dL (12.0-16.0); IMMATURE GRANULOCYTES 0.7 %; IMMATURE GRANULOCYTES ABSOLUTE 0.05 10/3/uL (0.0-0.11); LYMPHOCYTES 14.8 %; LYMPHOCYTES ABSOLUTE 0.99 10/3/uL (0.67-4.30); MEAN CORPUSCULAR HEMOGLOB 30.7 pg (26.0-34.0); MEAN PLATELET VOLUME 9.3 fL (9.2-13.0); MONOCYTES 14.8 %; MONOCYTES ABSOLUTE 0.99 10/3/uL (0.21-1.20); NEUTROPHILS 67.7 %; NEUTROPHILS ABSOLUTE 4.51 10/3/uL (2.02-8.40); PLATELET COUNT 244 10/3/uL (150-400); RBC DISTRIBUTION WIDTH 15.7 % (12.0-16.0); WHITE BLOOD CELLS 6.7 10/3/uL (4.5-10.5)
[2016-12-16 06:34] LABS: RED CELL COUNT 3.29 10/6/uL (4.0-5.6)
[2016-12-16 06:35] LABS: MANUAL DIFF NO %; MEAN CORPUS HGB CONC 32.5 g/dL (32.0-36.0); MEAN CORPUSCULAR VOLUME 94.5 fL (80-100)
[2016-12-16 06:47] LABS: BUN (BLOOD UREA NITROGEN) 11 MG/DL (6-23); CALCIUM, SERUM 8.9 MG/DL (8.5-10.4); CHLORIDE, SERUM 96 MMOL/L (96-112); CO2 (CARBON DIOXIDE) 39 MMOL/L (24-34); CREATININE 0.74 MG/DL (0.55-1.02); GFR AFRICAN AMERICAN 91 ML/MIN (>=60); GFR NON AFRICAN AMERICAN 79 ML/MIN (>=60); GLUCOSE, SERUM 92 MG/DL (60-99); POTASSIUM, SERUM 3.7 MMOL/L (3.5-5.3); SODIUM, SERUM 139 MMOL/L (135-148)
[2016-12-16 10:27] LABS: HEMATOCRIT 30.7 % (36.0-48.0); HEMOGLOBIN 9.8 g/dL (12.0-16.0)
[2016-12-17 07:14] LABS: BASOPHILS 0.1 %; BASOPHILS ABSOLUTE 0.01 10/3/uL (0.0-0.16); EOSINOPHILS 2.4 %; EOSINOPHILS ABSOLUTE 0.17 10/3/uL (0.0-0.53); HEMATOCRIT 32.9 % (36.0-48.0); HEMOGLOBIN 10.4 g/dL (12.0-16.0); IMMATURE GRANULOCYTES 0.6 %; IMMATURE GRANULOCYTES ABSOLUTE 0.04 10/3/uL (0.0-0.11); LYMPHOCYTES 16.1 %; LYMPHOCYTES ABSOLUTE 1.12 10/3/uL (0.67-4.30); MEAN CORPUS HGB CONC 31.6 g/dL (32.0-36.0); MEAN CORPUSCULAR HEMOGLOB 30.7 pg (26.0-34.0); MEAN CORPUSCULAR VOLUME 97.1 fL (80-100); MEAN PLATELET VOLUME 8.9 fL (9.2-13.0); MONOCYTES 15.3 %; MONOCYTES ABSOLUTE 1.06 10/3/uL (0.21-1.20); NEUTROPHILS 65.5 %; NEUTROPHILS ABSOLUTE 4.54 10/3/uL (2.02-8.40); PLATELET COUNT 277 10/3/uL (150-400); RBC DISTRIBUTION WIDTH 15.1 % (12.0-16.0); RED CELL COUNT 3.39 10/6/uL (4.0-5.6); WHITE BLOOD CELLS 6.9 10/3/uL (4.5-10.5)
[2016-12-17 07:15] LABS: MANUAL DIFF NO %
[2016-12-17 07:26] LABS: ALBUMIN 3.3 G/DL (3.5-5.0); BUN (BLOOD UREA NITROGEN) 8 MG/DL (6-23); CALCIUM, SERUM 9.7 MG/DL (8.5-10.4); CHLORIDE, SERUM 97 MMOL/L (96-112); CO2 (CARBON DIOXIDE) 38 MMOL/L (24-34); CREATININE 0.71 MG/DL (0.55-1.02); GFR AFRICAN AMERICAN 96 ML/MIN (>=60); GFR NON AFRICAN AMERICAN 83 ML/MIN (>=60); GLUCOSE, SERUM 92 MG/DL (60-99); POTASSIUM, SERUM 4.2 MMOL/L (3.5-5.3); SODIUM, SERUM 138 MMOL/L (135-148)
[2016-12-18 06:02] LABS: BASOPHILS 0.1 %; BASOPHILS ABSOLUTE 0.01 10/3/uL (0.0-0.16); EOSINOPHILS 3.2 %; EOSINOPHILS ABSOLUTE 0.24 10/3/uL (0.0-0.53); HEMATOCRIT 34.2 % (36.0-48.0); HEMOGLOBIN 10.7 g/dL (12.0-16.0); IMMATURE GRANULOCYTES 0.5 %; IMMATURE GRANULOCYTES ABSOLUTE 0.04 10/3/uL (0.0-0.11); LYMPHOCYTES 17.8 %; LYMPHOCYTES ABSOLUTE 1.34 10/3/uL (0.67-4.30); MANUAL DIFF NO %; MEAN CORPUS HGB CONC 31.3 g/dL (32.0-36.0); MEAN CORPUSCULAR HEMOGLOB 30.4 pg (26.0-34.0); MEAN CORPUSCULAR VOLUME 97.2 fL (80-100); MONOCYTES 12.4 %; MONOCYTES ABSOLUTE 0.93 10/3/uL (0.21-1.20); NEUTROPHILS ABSOLUTE 4.95 10/3/uL (2.02-8.40); PLATELET COUNT 344 10/3/uL (150-400); RBC DISTRIBUTION WIDTH 14.8 % (12.0-16.0); RED CELL COUNT 3.52 10/6/uL (4.0-5.6); WHITE BLOOD CELLS 7.5 10/3/uL (4.5-10.5)
[2016-12-18 06:13] LABS: BUN (BLOOD UREA NITROGEN) 10 MG/DL (6-23); CALCIUM, SERUM 9.8 MG/DL (8.5-10.4); CHLORIDE, SERUM 97 MMOL/L (96-112); CO2 (CARBON DIOXIDE) 38 MMOL/L (24-34); CREATININE 0.74 MG/DL (0.55-1.02); GFR AFRICAN AMERICAN 91 ML/MIN (>=60); GFR NON AFRICAN AMERICAN 79 ML/MIN (>=60); GLUCOSE, SERUM 96 MG/DL (60-99); PHOSPHORUS, SERUM 2.9 MG/DL (2.5-4.5); POTASSIUM, SERUM 4.2 MMOL/L (3.5-5.3); SODIUM, SERUM 140 MMOL/L (135-148)
[2016-12-19 05:17] LABS: BASOPHILS 0.1 %; BASOPHILS ABSOLUTE 0.01 10/3/uL (0.0-0.16); EOSINOPHILS 2.1 %; EOSINOPHILS ABSOLUTE 0.18 10/3/uL (0.0-0.53); HEMATOCRIT 32.1 % (36.0-48.0); HEMOGLOBIN 10.2 g/dL (12.0-16.0); IMMATURE GRANULOCYTES 0.5 %; IMMATURE GRANULOCYTES ABSOLUTE 0.04 10/3/uL (0.0-0.11); LYMPHOCYTES 17.9 %; LYMPHOCYTES ABSOLUTE 1.52 10/3/uL (0.67-4.30); MEAN CORPUS HGB CONC 31.8 g/dL (32.0-36.0); MEAN CORPUSCULAR HEMOGLOB 30.5 pg (26.0-34.0); MEAN CORPUSCULAR VOLUME 96.1 fL (80-100); MEAN PLATELET VOLUME 8.9 fL (9.2-13.0); MONOCYTES 16.9 %; MONOCYTES ABSOLUTE 1.44 10/3/uL (0.21-1.20); NEUTROPHILS 62.5 %; NEUTROPHILS ABSOLUTE 5.31 10/3/uL (2.02-8.40); PLATELET COUNT 363 10/3/uL (150-400); RBC DISTRIBUTION WIDTH 14.3 % (12.0-16.0); RED CELL COUNT 3.34 10/6/uL (4.0-5.6); WHITE BLOOD CELLS 8.5 10/3/uL (4.5-10.5)
[2016-12-19 05:19] LABS: MANUAL DIFF NO %
[2016-12-19 05:25] LABS: BUN (BLOOD UREA NITROGEN) 9 MG/DL (6-23); CALCIUM, SERUM 9.3 MG/DL (8.5-10.4); CHLORIDE, SERUM 95 MMOL/L (96-112); CO2 (CARBON DIOXIDE) 37 MMOL/L (24-34); CREATININE 0.53 MG/DL (0.55-1.02); GFR AFRICAN AMERICAN 107 ML/MIN (>=60); GFR NON AFRICAN AMERICAN 92 ML/MIN (>=60); GLUCOSE, SERUM 84 MG/DL (60-99); PHOSPHORUS, SERUM 2.7 MG/DL (2.5-4.5); POTASSIUM, SERUM 4.3 MMOL/L (3.5-5.3); SODIUM, SERUM 139 MMOL/L (135-148)
[2016-12-20 05:33] LABS: BASOPHILS 0.4 %; BASOPHILS ABSOLUTE 0.03 10/3/uL (0.0-0.16); EOSINOPHILS 2.9 %; EOSINOPHILS ABSOLUTE 0.23 10/3/uL (0.0-0.53); HEMATOCRIT 33.5 % (36.0-48.0); HEMOGLOBIN 10.4 g/dL (12.0-16.0); IMMATURE GRANULOCYTES 0.5 %; IMMATURE GRANULOCYTES ABSOLUTE 0.04 10/3/uL (0.0-0.11); LYMPHOCYTES 17.4 %; LYMPHOCYTES ABSOLUTE 1.38 10/3/uL (0.67-4.30); MEAN CORPUSCULAR HEMOGLOB 30.1 pg (26.0-34.0); MEAN CORPUSCULAR VOLUME 96.8 fL (80-100); MEAN PLATELET VOLUME 8.7 fL (9.2-13.0); MONOCYTES 16.2 %; MONOCYTES ABSOLUTE 1.29 10/3/uL (0.21-1.20); NEUTROPHILS 62.6 %; NEUTROPHILS ABSOLUTE 4.97 10/3/uL (2.02-8.40); PLATELET COUNT 340 10/3/uL (150-400); RBC DISTRIBUTION WIDTH 14.3 % (12.0-16.0); RED CELL COUNT 3.46 10/6/uL (4.0-5.6); WHITE BLOOD CELLS 7.9 10/3/uL (4.5-10.5)
[2016-12-20 05:39] LABS: MANUAL DIFF NO %
[2016-12-20 05:52] LABS: BUN (BLOOD UREA NITROGEN) 12 MG/DL (6-23); CALCIUM, SERUM 9.3 MG/DL (8.5-10.4); CHLORIDE, SERUM 94 MMOL/L (96-112); CO2 (CARBON DIOXIDE) 39 MMOL/L (24-34); CREATININE 0.49 MG/DL (0.55-1.02); GFR AFRICAN AMERICAN 110 ML/MIN (>=60); GFR NON AFRICAN AMERICAN 95 ML/MIN (>=60); GLUCOSE, SERUM 88 MG/DL (60-99); PHOSPHORUS, SERUM 3.4 MG/DL (2.5-4.5); POTASSIUM, SERUM 4.2 MMOL/L (3.5-5.3); SODIUM, SERUM 138 MMOL/L (135-148)
[2016-12-21 05:09] LABS: BUN (BLOOD UREA NITROGEN) 9 MG/DL (6-23); CALCIUM, SERUM 9.2 MG/DL (8.5-10.4); CHLORIDE, SERUM 93 MMOL/L (96-112); CREATININE 0.48 MG/DL (0.55-1.02); GFR AFRICAN AMERICAN 110 ML/MIN (>=60); GFR NON AFRICAN AMERICAN 95 ML/MIN (>=60); GLUCOSE, SERUM 84 MG/DL (60-99); HEMOGLOBIN 10.4 g/dL (12.0-16.0); POTASSIUM, SERUM 4.4 MMOL/L (3.5-5.3); SODIUM, SERUM 138 MMOL/L (135-148)
[2016-12-21 05:11] LABS: CO2 (CARBON DIOXIDE) 40 MMOL/L (24-34)
[2017-02-28] MEDS ORDERED: P10 PO (15:18)
[2017-05-16] MEDS ORDERED: PROAIR HFA INH (15:36)
[2017-05-16] MEDS ORDERED: LIPITOR10 PO (16:18)
[2017-05-25] MEDS ORDERED: T300 PO (08:16)
[2017-05-25] MEDS ORDERED: BROVANA15 MCG INH (08:16)
[2017-05-25] MEDS ORDERED: P20 PO (08:17)
[2017-05-25] MEDS ORDERED: PULRESP.5 INH (08:17)
[2017-05-25] MEDS ORDERED: HUMI PO (08:21)
== END 2016-12-21 17:35 | DRG 603 ==
LOC: ER 23:33 → 5SO 12-14 01:47
PROVIDERS: Internal Medicine; Specialist
PROC: 30233N1 Transfusion of Nonautologous Red Blood Cells into Peripheral Vein, Percutaneous Approach (ICD-10-PCS; principal; 2016-12-17)
DX: L03.116 Cellulitis of left lower limb (principal); J96.11 Chronic respiratory failure with hypoxia; J44.9 Chronic obstructive pulmonary disease, unspecified; D62 Acute posthemorrhagic anemia; J96.12 Chronic respiratory failure with hypercapnia; Z66 Do not resuscitate; S81.802A Unspecified open wound, left lower leg, initial encounter; W18.39XA Other fall on same level, initial encounter; Y92.019 Unspecified place in single-family (private) house as the place of occurrence of the external cause; E03.9 Hypothyroidism, unspecified; I10 Essential (primary) hypertension; E78.5 Hyperlipidemia, unspecified; F32.9 Major depressive disorder, single episode, unspecified; F41.9 Anxiety disorder, unspecified; Z88.8 Allergy status to other drugs, medicaments and biological substances; Z88.5 Allergy status to narcotic agent; Z91.013 Allergy to seafood; Z91.018 Allergy to other foods; Z79.82 Long term (current) use of aspirin; Z79.899 Other long term (current) drug therapy; Z96.642 Presence of left artificial hip joint; Z87.891 Personal history of nicotine dependence; Z82.49 Family history of ischemic heart disease and other diseases of the circulatory system
CPT/HCPCS: 36415; 36600; 71010; 73590-LT; 73701-LT; 80048; 80069; 80202; 82533; 82805; 83605; 83735; 84100; 84484; 85014; 85018; 85025; 85610; 85730; 86850; 86900; 86901; 86920; 87040; 90715; 93005; 94640; 96365; 97110-GP; 97116-GP; 97162-GP; 97166-GO; 97530-GP; 99285; A9270-GY; J0690; J1120; J2543; J3370; P9016; P9047; Q9967

== ENCOUNTER 2016-12-25 11:29 | Emergency (ER) | payer OTHER ==
[~2016-12-25 11:29] MED LIST changes: +KDUR20 PO
[2016-12-25 12:20] LABS: BASOPHILS 0.2 %; BASOPHILS ABSOLUTE 0.02 10/3/uL (0.0-0.16); EOSINOPHILS 1.1 %; EOSINOPHILS ABSOLUTE 0.09 10/3/uL (0.0-0.53); ER CBC TAT 0 Hrs 10 Mins; HEMOGLOBIN 10.3 g/dL (12.0-16.0); IMMATURE GRANULOCYTES 0.7 %; IMMATURE GRANULOCYTES ABSOLUTE 0.06 10/3/uL (0.0-0.11); LYMPHOCYTES 9.8 %; LYMPHOCYTES ABSOLUTE 0.82 10/3/uL (0.67-4.30); MANUAL DIFF NO %; MEAN CORPUS HGB CONC 31.2 g/dL (32.0-36.0); MEAN CORPUSCULAR HEMOGLOB 30.4 pg (26.0-34.0); MEAN CORPUSCULAR VOLUME 97.3 fL (80-100); MEAN PLATELET VOLUME 8.7 fL (9.2-13.0); MONOCYTES 12.7 %; MONOCYTES ABSOLUTE 1.07 10/3/uL (0.21-1.20); NEUTROPHILS 75.5 %; NEUTROPHILS ABSOLUTE 6.35 10/3/uL (2.02-8.40); PLATELET COUNT 267 10/3/uL (150-400); RBC DISTRIBUTION WIDTH 13.4 % (12.0-16.0); RED CELL COUNT 3.39 10/6/uL (4.0-5.6); WHITE BLOOD CELLS 8.4 10/3/uL (4.5-10.5)
[2016-12-25 12:36] LABS: A/G RATIO 0.7 (0.7-1.9); ALBUMIN 2.8 G/DL (3.5-5.0); ALKALINE PHOSPHATASE 62 U/L (45-117); BUN (BLOOD UREA NITROGEN) 9 MG/DL (6-23); CALCIUM, SERUM 9.8 MG/DL (8.5-10.4); CHLORIDE, SERUM 84 MMOL/L (96-112); CREATININE 0.53 MG/DL (0.55-1.02); GFR AFRICAN AMERICAN 107 ML/MIN (>=60); GFR NON AFRICAN AMERICAN 92 ML/MIN (>=60); GLOBULIN 4.1 G/DL (2.5-4.1); POTASSIUM, SERUM 4.7 MMOL/L (3.5-5.3); SGOT(AST) 14 U/L (5-40); SGPT(ALT) 7 U/L (5-65); SODIUM, SERUM 130 MMOL/L (135-148); TOTAL BILIRUBIN 0.3 MG/DL (0-1.2); TOTAL PROTEIN 6.9 G/DL (6.0-8.5)
[2016-12-25 12:38] LABS: CO2 (CARBON DIOXIDE) > 45 MMOL/L (24-34); GLUCOSE, SERUM 110 MG/DL (60-99)
[2016-12-25 12:47] LABS: INSTRUMENT SERIAL # 8087; pH 7.36 (7.37-7.43)
[2016-12-25 12:48] LABS: ALLENS TEST Pos; BE (BASE EXCESS) 17.1 MEQ/L (0 +/- 2.5); CARBOXYHEMOGLOBIN 1.6 % (0-3); HCO3 (ACTUAL BICARBONATE) 45.8 MEQ/L (23-27); METHEMOGLOBIN 0.3 % (0-3); O2 CONTENT 15.3 VOL% (18-24); PCO2 (CO2 TENSION) 82 MMHG (35-45); PO2 (O2 TENSION) 151 MMHG (79-93); SAMPLE Arterial
[2016-12-25] MEDS ORDERED: CLEOCIN300 MG PO (15:38)
[2016-12-25] MEDS ORDERED: ULTRAM50 PO (15:39)
[2016-12-25] MEDS ORDERED: FLORASTOR250 MG PO (15:39)
[2017-02-28] MEDS ORDERED: P10 PO (15:18)
[2017-05-16] MEDS ORDERED: PROAIR HFA INH (15:36)
[2017-05-16] MEDS ORDERED: LIPITOR10 PO (16:18)
[2017-05-25] MEDS ORDERED: BROVANA15 MCG INH (08:16)
[2017-05-25] MEDS ORDERED: T300 PO (08:16)
[2017-05-25] MEDS ORDERED: PULRESP.5 INH (08:17)
[2017-05-25] MEDS ORDERED: P20 PO (08:17)
[2017-05-25] MEDS ORDERED: HUMI PO (08:21)
== END 2016-12-25 17:54 | disposition home or self-care (01) ==
LOC: ER 11:29
PROVIDERS: Emergency Medicine
DX: J44.9 Chronic obstructive pulmonary disease, unspecified (principal); I10 Essential (primary) hypertension; F32.9 Major depressive disorder, single episode, unspecified; F41.9 Anxiety disorder, unspecified; D64.9 Anemia, unspecified; Z87.891 Personal history of nicotine dependence
CPT/HCPCS: 36600; 71010; 80053; 82805; 85025; 99285

== ENCOUNTER 2017-01-05 23:49 | Observation (INO) | payer OTHER ==
--- NOTE | ~2017-01-05 | HP ---
History And Physical [facility] [address] [facility] [place]. [address] NAME: CARIDAD GORDON : 40 STATUS : ADM Nancy PAT#: [id number] AGE: 76 ADM/REG DATE : 01/05/17 MR#: [id number] REPORT SERV DATE: 01/06/17 DICTATED BY: ROBERTO CARLOS ROB DATE: 01/06/17 REPORT STATUS : Draft TRANSCRIBED BY: MODRitu DATE: 01/06/17 DATE OF ADMISSION: 01/05/2017 CHIEF COMPLAINT: Left leg wound. HISTORY OF PRESENT ILLNESS: The patient is a 76-year-old female who is currently residing at the [facility]. Reports, she was transferred to [facility] Emergency Room last night secondary to her wound VAC not working. The patient reports ongoing wound to her left lower leg since she had fallen in November and traumatized her left leg. The patient reports she has been following Dr. Gaitan at [facility]. She reports she last followed up on and is scheduled for another followup this coming at 10 o'clock. The patient continued to report left leg pain especially with movement and palpation and wound care. PAST MEDICAL HISTORY: 1. Left lower extremity wound status post trauma with hematoma and cellulitis, treated in 11/2016 at [facility]. The patient was followed at the [facility] by Dr. Higgins for her ongoing left lower leg wound with wound VAC therapy. 2. End-stage COPD. 3. Chronic hypercarbic and hypoxic respiratory failure. 4. Hypothyroidism. 5. Anxiety disorder. 6. Depression. 7. History of recent acute blood loss anemia. 8. Hyperlipidemia. 9. History of thoracic aortic aneurysm, followed by Dr. Brush, her primary care physician. She reports having yearly CT scan to evaluate her AAA. 10.Patient record shows patient with a history of hypertension, but the patient reports she has no history of hypertension. 11.Cataract surgery bilaterally with right eye cataract surgery and left eye needing surgery. PAST SURGICAL HISTORY: 1. Left hemiarthroplasty on 09/05/2016. 2. Remote history of appendectomy, tonsillectomy, and hysterectomy. 3. The patient reports having a history of removal of basal cell carcinoma on her left nasal wall by Dr. Bobby and her right cheek by Dr. Poornima Bernard. 4. History of right eye cataract surgery. SOCIAL HISTORY: The patient is . She has three children. 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 History of tobacco use: Reports she started smoking at age 22 and she quit smoking in 2014. She reports she has smoked approximately one pack per day. The patient reports prior to her admission in the [facility] in November, she lived alone with her dog. She reports she was transferred to [facility] for History And Physical [address] [address] NAME: CARIDAD GORDON : 40 STATUS : ADM Nancy PAT#: [id number] AGE: 76 ADM/REG DATE : 01/05/17 MR#: [id number] REPORT SERV DATE: 01/06/17 DICTATED BY: ROBERTO CARLOS ROB DATE: 01/06/17 REPORT STATUS : Draft TRANSCRIBED BY: ESME DATE: 01/06/17 two days after from [facility]; however, she was she was transferred to [facility] secondary to her Trilogy CPAP. ALLERGIES: 1. THE PATIENT WITH ALLERGY TO HYDROMORPHONE WHICH CAUSES RESPIRATORY DISTRESS. 2. FISH-CONTAINING PRODUCT CAUSES NAUSEA AND VOMITING. 3. HYDROCODONE CAUSES NAUSEA AND VOMITING. 4. OXYCODONE CAUSES NAUSEA AND VOMITING. 5. CARISOPRODOL FROM SOMA CAUSES NAUSEA AND VOMITING. 6. PINEAPPLE CAUSES NAUSEA AND VOMITING. CODE STATUS: The patient is DNR. REVIEW OF SYSTEMS: The patient reports she uses prescription glasses. She has had cataract on both eyes with the right eye repair approximately four years ago and her left eye requiring surgery. She was followed by Dr. Santacruz. She reports no history of swallowing. She has had a history of skin cancer removal in her left nose and on her right cheek. Her left nose was done by Dr. Bobby and her right cheek was done by Dr. Poornima Bernard. The patient denies any shortness of breath. Has a history of end-stage COPD. Has been using Trilogy CPAP for approximately one year. She reports she followed with a owner/operator, but does not remember his name. She reports chronic use of oxygen by nasal cannula. The patient reports having had a history of CO2 retention, and when her CO2 is high, she reports she gets confused. The patient denies any chest pain. She reports having no history of hypertension. The patient denies any nausea or vomiting. Denies any history of ulcer. Reports her recent anemia was from her trauma in November. The patient reports that last BM was yesterday. The patient reports having a history of hypothyroidism. The patient reports she has not been able to walk since her trauma of her leg. She has been receiving rehab at [facility]. The patient wishes to return back to [facility] to continue rehab. The patient reports that she is being followed by Dr. Gaitan for her left leg wound. She was seen on . She has been on wound VAC. She reports she was sent to the emergency room last night because her wound VAC was not working. She still continued to complain of swelling, redness, and pain in her legs especially with movement as well as wound care when examiner touches. History And Physical [address] [address] NAME: CARIDAD GORDON : 40 STATUS : ADM Nancy PAT#: [id number] AGE: 76 ADM/REG DATE : 01/05/17 MR#: [id number] REPORT SERV DATE: 01/06/17 DICTATED BY: ROBERTO CARLOS ROB DATE: 01/06/17 REPORT STATUS : Draft TRANSCRIBED BY: ESME DATE: 01/06/17 The patient denies any history of seizure or diabetes. PHYSICAL EXAMINATION: VITAL SIGNS: Temperature 98.1, pulse 94, respiratory rate of 12, BP of 114/56, sat O2 of 94% on 3L via nasal cannula. Weight of 63.55 kg and BMI of 21.9. GENERAL: The patient is an elderly female and no acute distress noted. NEUROLOGIC: The patient was easily arousable from sleep and very conversant. She is alert and oriented soon after awakened x3. HEENT: Mucosa moist. Uses nasal cannula at 3 L/minute. Denture is in upper mouth. Eyes: PERRL. NECK: No JVD noted. No pain on palpation. CHEST: No chest deformity noted. LUNGS: Diminished breath sounds in bilateral lower base, slightly coarse upper but clears after cough. CARDIOVASCULAR: No murmurs noted. Regular rate and rhythm. Normal S1, S2 noted. ABDOMEN: Soft, nontender. Bowel sounds x4 quadrants throughout. GENITOURINARY: Uses adult diaper. EXTREMITIES: Noted with good range of motion except for her lower extremity secondary to pain and due to her wound. No edema in right lower extremity. 2+ to 3+ edema on her left lower extremity with positive erythema and pain on palpation and noted serosanguineous drainage in her left lower wound, noted wound bed is beefy red with good granulation with tracking at the 12 o'clock and noted old ecchymosis in upper region of her calf. NEUROLOGIC: Gait not assessed. Strength in bilateral upper and right lower extremities 5/5, left lower is 3 to 4/5 secondary to pain. LABORATORY STUDY: Sodium of 130, potassium 4.5, chloride 84, CO2 of greater than 45, BUN 12, creatinine 0.66, glucose of 106, and GFR of 86. WBC of 8.7, hemoglobin 9.7, hematocrit 31.2, and platelet of 359. Accu-Chek result is 106 this morning. ASSESSMENT: 1. Recurrent left lower leg cellulitis with chronic wound. 2. Left leg wound status post trauma. 3. End-stage chronic obstructive pulmonary disease, with no acute exacerbation. 4. History of chronic hypercarbic and hypoxic respiratory failure. 5. Hyponatremia. 6. Anxiety disorder. 7. Depression. 8. Hypothyroidism. 9. Debility with gait impairment secondary to left leg wound and chronic obstructive pulmonary disease. 10.Anemia secondary to chronic disease. 11.History of hyperlipidemia. 12.History of thoracic aortic abdominal aneurysm. 13.History of tobacco abuse. PLAN: 1. Discussed with Dr. Gaitan, who had actually seen the patient's wound this morning. He History And Physical [address] [address] NAME: CARIDAD GORDON : 40 STATUS : ADM Nancy PAT#: [id number] AGE: 76 ADM/REG DATE : 01/05/17 MR#: [id number] REPORT SERV DATE: 01/06/17 DICTATED BY: ROBERTO CARLOS ROB DATE: 01/06/17 REPORT STATUS : Draft TRANSCRIBED BY: MODL DATE: 01/06/17 reports the patient's wound is about the same except for some increase of redness in her wound. Dr. Gaitan recommended continue Aquacel AC dressing today and can resume wound VAC at [facility] in [place] morning and to keep followup appointment with him on 01/10/2017. Dr. Gaitan agreed with continued antibiotic regimen. 2. The patient is afebrile. Admission WBC is 8.7, so therefore, we will plan to change the patient's clindamycin IV to p.o. of 450 mg q.6 hours x7 days. We will apply Aquacel Ag dressing today and plan to transfer the patient back to [facility] for continued wound VAC, rehab, and medical management. Reviewed admission MAR as well as discharge MAR. Completed discharge paperwork. 3. We will insure lab work followup for Saturday for provider to follow up the patient's cellulitis. The patient is at risk for sepsis. 4. The patient with a history of end-stage chronic obstructive pulmonary disease with chronic obstructive pulmonary disease status stable as long as the patient remained on her nocturnal Trilogy and continuous nasal cannula O2 at 3 to 6 L/minute. Continue home breathing treatment. The patient is at risk for recurrent chronic obstructive pulmonary disease exacerbation and worsening respiratory failure. 5. Patient's admission sodium was 130. She is on Lasix. Plan to decrease this a little bit and follow up with lab work on Saturday. We will need to continue elevating left lower extremity to aid with swelling. The patient is at risk for cardiac arrhythmia with further hyponatremia. 6. We will refer the patient back to [facility] for continue rehab. 7. The patient with a history anemia and H and H on 01/05 were 9.7 and 31.2. 8. We will continue other home regimen and refer the patient to Wound Care for continued wound VAC, that could be reapplied in a.m., which is Saturday. 9. Discussed with nurse and agreed with the plan. DICTATED BY: Cassi Nolasco NP CLP/MODL Roberto Carlos Rob M.D. / [id number] CC: Jose Daniel Robles M.D.
--- NOTE | ~2017-01-05 | DS ---
Discharge Summary [facility] [address] [place]. [address] NAME: CARIDAD GORDON : 40 STATUS : DIS Nancy PAT#: [id number] AGE: 76 ADM/REG DATE : 01/05/17 MR#: [id number] REPORT SERV DATE: 01/15/17 DICTATED BY: ROBERTO CARLOS ROB DATE: 01/15/17 REPORT STATUS : Draft TRANSCRIBED BY: ESME DATE: 01/15/17 Data Collection from hospitalization DISCHARGE DIAGNOSES: 1. Recurrent left lower extremity cellulitis with chronic wound. 2. Left lower extremity wound status post trauma. 3. End-stage chronic obstructive pulmonary disease with exacerbation. 4. Hyponatremia. 5. Anxiety and depression. 6. Debility with gait impairment secondary to left lower extremity wounds. 7. Hyperlipidemia. 8. History of recent acute blood loss anemia. 9. Hypothyroidism. 10.Former smoker. CONSULTATIONS: None. PROCEDURES PERFORMED: None. MEDICATIONS: Tylenol 650 mg every six hours as needed, levothyroxine 125 mcg daily, Mag-Ox 500 mg daily, Paxil 20 mg every day at bedtime, Daliresp 500 mcg daily, Florastor 250 mg twice a day, DuoNeb inhaled solution one nebulized inhaler three times a day, Dulera two puffs via inhaler twice a day, Spiriva one capsule via inhaler daily, multivitamins one tablet daily, Ultram 50 mg every four hours as needed, Lasix 20 mg daily, KCl 10 mg daily. CONDITION AT DISCHARGE: Stable. DISPOSITION: The patient was discharged to [facility] on a regular diet with activities as instructed. She would follow up with Dr. Sinan Gaitan at the [facility], 01/10/2017. HOSPITAL COURSE: This is a 76-year-old female, who currently resides at [facility]. She reports that she was transferred to the [facility] emergency room secondary to her wound VAC not working. She reported ongoing wound to the left lower extremity since a fall in November when she traumatized her left foot. She reports that she had been followed by Dr. Gaitan at the [facility]. She reports that she last followed up on prior to admission and was scheduled for another followup the following at 10 o'clock. She continued to report left leg pain, especially with movement and palpation and wound care. She was admitted to the hospital at this time for further evaluation and treatment. Upon admission, she had been seen by Dr. Gaitan that morning and he reported that the patient's wound was about the same, except for some increase in the redness of the wound. He recommended continuing Aquacel AG dressing and then resume wound VAC at [facility] and keep a followup appointment with him on 01/10/2017. Dr. Gaitan agreed with the continued antibiotic regimen. IV clindamycin was going to be changed to oral dosing. Aquacel AG dressing was going to be applied. The wound VAC would be continued. The patient is at risk for sepsis. Continuous nasal O2 was continued at 3-6 L/minute. Her home breathing Discharge Summary [address] [address] NAME: CARIDAD GORDON : 40 STATUS : DIS Nancy PAT#: [id number] AGE: 76 ADM/REG DATE : 01/05/17 MR#: [id number] REPORT SERV DATE: 01/15/17 DICTATED BY: ROBERTO CARLOS ROB DATE: 01/15/17 REPORT STATUS : Draft TRANSCRIBED BY: ESME DATE: 01/15/17 treatments were continued. On the , she denied any complaints of shortness of breath, chest pain, nausea, vomiting, or abdominal pain. She had noticed less redness and pain in the left leg wound. Sodium level was 132. Discharge planning was performed. On 01/08/2017, discharge instructions were given. Due to her improved and stable condition, she was discharged back to [facility] with the above-stated instructions. Information collected by: Rosemary Bravo I submit the above information as my discharge summary. TG/MODL Roberto Carlos Rob M.D. / [id number] CC: Jose Daniel Robles M.D. [facility]
[~2017-01-05 23:49] MED LIST changes: +CLEOCIN300 MG PO; +FLORASTOR250 MG PO; +ULTRAM50 PO
[2017-01-06] LABS: BASOPHILS 0.5 %; BASOPHILS ABSOLUTE 0.04 10/3/uL (0.0-0.16); EOSINOPHILS ABSOLUTE 0.09 10/3/uL (0.0-0.53); ER CBC TAT 0 Hrs 07 Mins; HEMATOCRIT 31.2 % (36.0-48.0); HEMOGLOBIN 9.7 g/dL (12.0-16.0); IMMATURE GRANULOCYTES 1.2 %; LYMPHOCYTES 15.7 %; LYMPHOCYTES ABSOLUTE 1.36 10/3/uL (0.67-4.30); MEAN CORPUS HGB CONC 31.1 g/dL (32.0-36.0); MEAN CORPUSCULAR HEMOGLOB 29.8 pg (26.0-34.0); MEAN CORPUSCULAR VOLUME 95.7 fL (80-100); MEAN PLATELET VOLUME 8.5 fL (9.2-13.0); MONOCYTES 14.2 %; MONOCYTES ABSOLUTE 1.23 10/3/uL (0.21-1.20); NEUTROPHILS 67.4 %; NEUTROPHILS ABSOLUTE 5.83 10/3/uL (2.02-8.40); RBC DISTRIBUTION WIDTH 13.6 % (12.0-16.0); RED CELL COUNT 3.26 10/6/uL (4.0-5.6); WHITE BLOOD CELLS 8.7 10/3/uL (4.5-10.5)
[2017-01-06 00:05] LABS: MANUAL DIFF NO %; PLATELET COUNT 359 10/3/uL (150-400)
[2017-01-06 00:14] LABS: BUN (BLOOD UREA NITROGEN) 12 MG/DL (6-23); CALCIUM, SERUM 9.1 MG/DL (8.5-10.4); CHLORIDE, SERUM 84 MMOL/L (96-112); CREATININE 0.66 MG/DL (0.55-1.02); GFR AFRICAN AMERICAN 99 ML/MIN (>=60); GFR NON AFRICAN AMERICAN 86 ML/MIN (>=60); GLUCOSE, SERUM 106 MG/DL (60-99); POTASSIUM, SERUM 4.5 MMOL/L (3.5-5.3); SODIUM, SERUM 130 MMOL/L (135-148)
[2017-01-06 00:15] LABS: CO2 (CARBON DIOXIDE) > 45 MMOL/L (24-34); LACTATE 2.4 MMOL/L (0.3-2.4)
[2017-01-06] MEDS ORDERED: MAG OXIDE250 MG PO (01:11)
[2017-01-06] MEDS ORDERED: LEVOTHYROXIN112 MCG PO (01:11)
[2017-01-06] MEDS ORDERED: PAX10 PO (01:12)
[2017-01-06] MEDS ORDERED: KLOR-CON M2020 MEQ PO (01:12)
[2017-01-06] MEDS ORDERED: DALIRESP500 MCG PO (01:13)
[2017-01-06] MEDS ORDERED: ANOROELLIPTA INH (01:14)
[2017-01-06] MEDS ORDERED: ALBUTEROL0.083 % INH (01:14)
[2017-01-06] MEDS ORDERED: FLORASTOR250 MG PO (01:14)
[2017-01-06] MEDS ORDERED: ULTRAM50 PO (01:15)
[2017-01-06] MEDS ORDERED: SPIRIVA INH (01:15)
[2017-01-06] MEDS ORDERED: MULTIVITAMI1 PO (01:15)
[2017-01-06] MEDS ORDERED: L20 PO (01:15)
[2017-01-06] MEDS ORDERED: T PO (01:16)
[2017-01-07 07:10] LABS: BASOPHILS 0.4 %; BASOPHILS ABSOLUTE 0.03 10/3/uL (0.0-0.16); EOSINOPHILS 1.9 %; EOSINOPHILS ABSOLUTE 0.13 10/3/uL (0.0-0.53); HEMATOCRIT 29.7 % (36.0-48.0); HEMOGLOBIN 9.2 g/dL (12.0-16.0); IMMATURE GRANULOCYTES 1.3 %; IMMATURE GRANULOCYTES ABSOLUTE 0.09 10/3/uL (0.0-0.11); LYMPHOCYTES 21.5 %; LYMPHOCYTES ABSOLUTE 1.44 10/3/uL (0.67-4.30); MEAN CORPUSCULAR VOLUME 96.7 fL (80-100); MEAN PLATELET VOLUME 8.6 fL (9.2-13.0); MONOCYTES 14.9 %; NEUTROPHILS ABSOLUTE 4.02 10/3/uL (2.02-8.40); PLATELET COUNT 350 10/3/uL (150-400); RBC DISTRIBUTION WIDTH 13.3 % (12.0-16.0); RED CELL COUNT 3.07 10/6/uL (4.0-5.6); WHITE BLOOD CELLS 6.7 10/3/uL (4.5-10.5)
[2017-01-07 07:15] LABS: MANUAL DIFF NO %
[2017-01-07 07:32] LABS: CALCIUM, SERUM 9.1 MG/DL (8.5-10.4); CHLORIDE, SERUM 88 MMOL/L (96-112); CREATININE 0.54 MG/DL (0.55-1.02); GFR AFRICAN AMERICAN 106 ML/MIN (>=60); GFR NON AFRICAN AMERICAN 92 ML/MIN (>=60); GLUCOSE, SERUM 97 MG/DL (60-99); POTASSIUM, SERUM 4.1 MMOL/L (3.5-5.3); SODIUM, SERUM 132 MMOL/L (135-148)
[2017-01-07 07:33] LABS: BUN (BLOOD UREA NITROGEN) 7 MG/DL (6-23); CO2 (CARBON DIOXIDE) 44 MMOL/L (24-34)
[2017-02-28] MEDS ORDERED: P10 PO (15:18)
[2017-05-16] MEDS ORDERED: PROAIR HFA INH (15:36)
[2017-05-16] MEDS ORDERED: LIPITOR10 PO (16:18)
[2017-05-25] MEDS ORDERED: T300 PO (08:16)
[2017-05-25] MEDS ORDERED: BROVANA15 MCG INH (08:16)
[2017-05-25] MEDS ORDERED: PULRESP.5 INH (08:17)
[2017-05-25] MEDS ORDERED: P20 PO (08:17)
[2017-05-25] MEDS ORDERED: HUMI PO (08:21)
== END 2017-01-08 11:19 ==
LOC: ER 23:49 → 5SO 23:59
PROVIDERS: Family Medicine; Specialist
DX: L03.116 Cellulitis of left lower limb (principal); J44.9 Chronic obstructive pulmonary disease, unspecified; E87.1 Hypo-osmolality and hyponatremia; J96.11 Chronic respiratory failure with hypoxia; F41.9 Anxiety disorder, unspecified; F32.9 Major depressive disorder, single episode, unspecified; E03.9 Hypothyroidism, unspecified; D64.9 Anemia, unspecified; D63.8 Anemia in other chronic diseases classified elsewhere; E78.5 Hyperlipidemia, unspecified; Z98.41 Cataract extraction status, right eye; Z98.42 Cataract extraction status, left eye; Z88.5 Allergy status to narcotic agent; Z91.018 Allergy to other foods; Z87.891 Personal history of nicotine dependence; Z86.79 Personal history of other diseases of the circulatory system
CPT/HCPCS: 80048; 83605; 85025; 87040; 94640; 96372; 96376; 97162-GP; 99284; A9270-GY; G0378; G8978-CK-GP; G8979-CJ-GP